=== PATIENT | female | born 1985 | race Caucasian/White ===

== ENCOUNTER 2021-04-30 13:09 | Emergency (ER) | payer OTHER ==
[~2021-04-30] VITALS: Ht 167.6 cm; Wt 56.7 kg
[2021-04-30] MEDS ORDERED: AUGMENTIN 875-1 EACH PO (14:20)
[2021-04-30 14:44] VITALS: BP 124/68
== END 2021-04-30 14:45 | disposition home or self-care (01) ==
LOC: M.ERS 13:09
DX: S01.511A Laceration without foreign body of lip, initial encounter (principal); Z88.2 Allergy status to sulfonamides; Z88.8 Allergy status to other drugs, medicaments and biological substances; W54.0XXA Bitten by dog, initial encounter; Y93.9 Activity, unspecified; Y92.89 Other specified places as the place of occurrence of the external cause; Y99.0 Civilian activity done for income or pay